=== PATIENT | male | born 1955 | race Two or more races ===

== ENCOUNTER 2024-10-25 16:23 | Emergency (ER) | payer MEDICARE, MEDICAID ==
[~2024-10-25] VITALS: Ht 167.6 cm; Wt 74.8 kg
[~2024-10-25 16:23] MED LIST: ATOR20TA65 MT; BACL20TA MT; CHOL200016 PO; DALF10TA3 PO; DOCU-422 MT; FLUO10TA34 PO; GABA-1180 MT; LEVO50TA8 MT; METF-416 MT; OMEP20CA14 MT; TAMS-54 MT
[2024-10-25 16:25] VITALS: O2SAT 97
[2024-10-25 16:28] VITALS: BP 121/75; PULSE 92; RESP 18; TEMP 36.7; O2SAT 97
[2024-10-25] MEDS ORDERED: CLOT15CR27 TP (18:30)
[2024-10-25] MEDS ORDERED: HYDR28OI2 TP (18:30)
== END 2024-10-25 18:54 | disposition home or self-care (01) ==
LOC: ER 16:23
DX: L30.4 Erythema intertrigo (principal); B35.6 Tinea cruris; E11.9 Type 2 diabetes mellitus without complications; I10 Essential (primary) hypertension; Z98.890 Other specified postprocedural states; Z79.899 Other long term (current) drug therapy
CPT/HCPCS: 99282; 99283